=== PATIENT | male | born 1970 | race Caucasian/White ===

== ENCOUNTER 2020-08-12 10:44 | Emergency (ER) | payer OTHER, BC ==
[~2020-08-12] VITALS: Ht 182.9 cm; Wt 77.1 kg
[2020-08-12 11:41] LABS: BASOPHILS ABSOLUTE AUTO 0.03 K/mm3 (0.00-0.23); BASOPHILS PERCENT AUTO 1 % (0-2); EOSINOPHILS ABSOLUTE AUTO 0.19 K/mm3 (0.00-0.68); EOSINOPHILS PERCENT AUTO 4 % (0-6); Hematocrit 34.7 % (37.0-53.0); Hemoglobin 12.1 g/dL (13.5-17.5); IMMATURE GRAN ABSOLUTE AUTO 0.01 K/mm3 (0.00-0.10); IMMATURE GRAN PERCENT AUTO 0 % (0-1); LYMPHOCYTES ABSOLUTE AUTO 2.33 K/mm3 (0.84-5.20); LYMPHOCYTES PERCENT AUTO 51 % (21-46); MONOCYTES PERCENT AUTO 11 % (4-13); Mean Corpuscular HGB 31.6 pg (26.0-34.0); Mean Corpuscular HGB Conc 34.9 g/dL (31.5-36.5); Mean Corpuscular Volume 91 fL (80-100); Mean Platelet Volume 10.9 fL (9.1-12.4); NEUTROPHILS ABSOLUTE AUTO 1.53 K/mm3 (1.96-9.15); NEUTROPHILS PERCENT AUTO 33 % (41-73); Platelet Count 104 K/mm3 (150-400); RDW Coefficient Variation 14.7 % (11.7-14.2); RDW Standard Deviation 48.9 fL (35.1-46.3); Red Blood Cell Count 3.83 M/mm3 (4.30-5.90); White Blood Cell Count 4.59 K/mm3 (4.00-11.30)
[2020-08-12 11:57] LABS: Alanine Aminotransfer (ALT/SGP 150 U/L (12-78); Albumin, Blood 4.1 g/dL (3.4-5.0); Albumin/Globulin Ratio 1.1 (0.8-1.8); Alk Phos 71 U/L (50-136); Anion Gap 17 mmol/L (6-16); Aspartate Aminotrans (AST/SGOT 262 U/L (12-37); Bilirubin, Total 0.9 mg/dL (0.1-1.0); Blood Urea Nitrogen 15 mg/dL (8-24); Bun/Creatinine Ratio 13.6 (12.0-20.0); CO2, Blood 23 mmol/L (21-32); Calcium, Blood 8.9 mg/dL (8.5-10.1); Chloride, Blood 100 mmol/L (98-108); Ethanol (Alcohol), Blood, Med 256 mg/dL; Globulin, Blood 3.9 g/dL (2.2-4.0); Glomerular Filtration Rate >60 (60-); Glucose, Blood 99 mg/dL (70-99); Magnesium, Blood 1.9 mg/dL (1.6-2.4); Potassium, Blood 3.7 mmol/L (3.5-5.5); Sodium, Blood 140 mmol/L (136-145); Troponin I <0.015 ng/mL (0.000-0.040)
[2020-08-12] MEDS ORDERED: CHLO25 PO (12:29)
== END 2020-08-12 12:50 | disposition home or self-care (01) ==
LOC: ER 10:44
PROVIDERS: Emergency Medicine
DX: R55 Syncope and collapse (principal); I10 Essential (primary) hypertension; F10.20 Alcohol dependence, uncomplicated; K70.10 Alcoholic hepatitis without ascites
CPT/HCPCS: 70450; 71045; 80053; 82010; 83605; 83735; 84484; 85025; 93005; 93010; 96361; 96374; 99285-25; G0480; J2060; J7120

== ENCOUNTER 2020-08-16 10:33 | Emergency (ER) | payer OTHER, BC ==
[~2020-08-16] VITALS: Ht 180.3 cm; Wt 77.1 kg
[~2020-08-16 10:33] MED LIST: CHLO25 PO
[2020-08-16] MEDS ORDERED: LISINOPRIL-HCT1 EAC1 PO (11:09)
[2020-08-16] MEDS ORDERED: Chlordiazepoxid25 MG PO (11:10)
[2020-08-16 11:17] LABS: BASOPHILS ABSOLUTE AUTO 0.05 K/mm3 (0.00-0.23); BASOPHILS PERCENT AUTO 1 % (0-2); EOSINOPHILS ABSOLUTE AUTO 0.18 K/mm3 (0.00-0.68); EOSINOPHILS PERCENT AUTO 3 % (0-6); Hematocrit 37.6 % (37.0-53.0); Hemoglobin 12.6 g/dL (13.5-17.5); IMMATURE GRAN ABSOLUTE AUTO 0.04 K/mm3 (0.00-0.10); IMMATURE GRAN PERCENT AUTO 1 % (0-1); LYMPHOCYTES ABSOLUTE AUTO 1.33 K/mm3 (0.84-5.20); LYMPHOCYTES PERCENT AUTO 19 % (21-46); MONOCYTES ABSOLUTE AUTO 0.83 K/mm3 (0.16-1.47); MONOCYTES PERCENT AUTO 12 % (4-13); Mean Corpuscular HGB Conc 33.5 g/dL (31.5-36.5); Mean Corpuscular Volume 93 fL (80-100); Mean Platelet Volume 11.5 fL (9.1-12.4); NEUTROPHILS ABSOLUTE AUTO 4.73 K/mm3 (1.96-9.15); NEUTROPHILS PERCENT AUTO 66 % (41-73); Platelet Count 108 K/mm3 (150-400); RDW Coefficient Variation 14.5 % (11.7-14.2); RDW Standard Deviation 49.3 fL (35.1-46.3); Red Blood Cell Count 4.06 M/mm3 (4.30-5.90); White Blood Cell Count 7.16 K/mm3 (4.00-11.30)
[2020-08-16 11:31] LABS: Albumin, Blood 4.2 g/dL (3.4-5.0); Albumin/Globulin Ratio 0.9 (0.8-1.8); Bilirubin, Total 1.6 mg/dL (0.1-1.0); Bun/Creatinine Ratio 13.3 (12.0-20.0); Calcium, Blood 9.1 mg/dL (8.5-10.1); Creatinine, Blood 1.43 mg/dL (0.60-1.20); Globulin, Blood 4.5 g/dL (2.2-4.0); Potassium, Blood 3.1 mmol/L (3.5-5.5); Total Protein, Blood 8.7 g/dL (6.4-8.2)
[2020-08-16 12:31] LABS: Bilirubin, Urine Neg (Neg); Blood, Urine Neg (Neg); Glucose Qualitative, Urine Neg (Neg); Ketones, Urine 1+ (Neg); Leukocyte Esterase, Urine Neg (Neg); Nitrite, Urine Neg (Neg); Protein, Urine Neg (Neg); Specific Gravity, Urine 1.005 (1.003-1.022); Urobilinogen, Urine NORM (Normal); pH, Urine 6.5 (5.0-8.0)
[2020-08-16 12:35] LABS: Appearance, Urine Clear (Clear); Color, Urine Yellow (P-Yellow)
[2020-08-16] MEDS ORDERED: K-Dur10 MEQ PO (13:04)
== END 2020-08-16 13:19 | disposition home or self-care (01) ==
LOC: ER 10:33
PROVIDERS: Emergency Medicine
DX: I95.1 Orthostatic hypotension (principal); E87.6 Hypokalemia; N17.9 Acute kidney failure, unspecified; I10 Essential (primary) hypertension; K21.9 Gastro-esophageal reflux disease without esophagitis; Z79.899 Other long term (current) drug therapy
CPT/HCPCS: 36415; 80053; 81003; 85025; 93005; 93010; 96360; 99285-25; A9270; J7030

== ENCOUNTER 2021-03-26 15:53 | Emergency (ER) | payer OTHER, BC ==
[~2021-03-26] VITALS: Ht 182.9 cm; Wt 108.0 kg
[~2021-03-26 15:53] MED LIST changes: +Chlordiazepoxid25 MG PO; +K-Dur10 MEQ PO; +LISINOPRIL-HCT1 EAC1 PO
[2021-03-26] MEDS ORDERED: TRAM50 PO (16:37)
[2021-03-26 16:40] LABS: BASOPHILS ABSOLUTE AUTO 0.03 K/mm3 (0.00-0.23); BASOPHILS PERCENT AUTO 0 % (0-2); EOSINOPHILS PERCENT AUTO 0 % (0-6); Hemoglobin 13.4 g/dL (13.5-17.5); IMMATURE GRAN ABSOLUTE AUTO 0.04 K/mm3 (0.00-0.10); IMMATURE GRAN PERCENT AUTO 1 % (0-1); LYMPHOCYTES ABSOLUTE AUTO 0.77 K/mm3 (0.84-5.20); LYMPHOCYTES PERCENT AUTO 9 % (21-46); MONOCYTES ABSOLUTE AUTO 0.56 K/mm3 (0.16-1.47); MONOCYTES PERCENT AUTO 7 % (4-13); Mean Corpuscular HGB 32.1 pg (26.0-34.0); Mean Corpuscular HGB Conc 36.2 g/dL (31.5-36.5); Mean Corpuscular Volume 89 fL (80-100); Mean Platelet Volume 10.2 fL (9.1-12.4); NEUTROPHILS ABSOLUTE AUTO 7.21 K/mm3 (1.96-9.15); NEUTROPHILS PERCENT AUTO 84 % (41-73); Platelet Count 214 K/mm3 (150-400); RDW Coefficient Variation 12.9 % (11.7-14.2); RDW Standard Deviation 42.3 fL (35.1-46.3); Red Blood Cell Count 4.17 M/mm3 (4.30-5.90); White Blood Cell Count 8.61 K/mm3 (4.00-11.30)
[2021-03-26 16:52] LABS: Alanine Aminotransfer (ALT/SGP 27 U/L (12-78); Albumin, Blood 4.6 g/dL (3.4-5.0); Albumin/Globulin Ratio 1.2 (0.8-1.8); Alk Phos 64 U/L (50-136); Anion Gap 10 mmol/L (6-16); Aspartate Aminotrans (AST/SGOT 36 U/L (12-37); Bilirubin, Total 0.9 mg/dL (0.1-1.0); Blood Urea Nitrogen 18 mg/dL (8-24); Bun/Creatinine Ratio 15.3 (12.0-20.0); CO2, Blood 23 mmol/L (21-32); Calcium, Blood 10.3 mg/dL (8.5-10.1); Chloride, Blood 106 mmol/L (98-108); Creatinine, Blood 1.18 mg/dL (0.60-1.20); Globulin, Blood 3.8 g/dL (2.2-4.0); Glomerular Filtration Rate >60 (60-); Glucose, Blood 115 mg/dL (70-99); Potassium, Blood 4.1 mmol/L (3.5-5.5); Sodium, Blood 139 mmol/L (136-145); Total Protein, Blood 8.4 g/dL (6.4-8.2)
[2021-03-26] MEDS ORDERED: ONDA4ODT MM (17:57)
== END 2021-03-26 18:10 | disposition home or self-care (01) ==
LOC: ER 15:53
PROVIDERS: Physician Assistant
DX: E86.0 Dehydration (principal); Z79.899 Other long term (current) drug therapy
CPT/HCPCS: 80053; 85025; 93005; 93010; 96361; 96374; 99284-25; J2550; J7030

== ENCOUNTER 2023-03-15 20:58 | Inpatient (IN) | payer BC ==
[~2023-03-15] VITALS: Ht 182.9 cm; Wt 72.6 kg
[~2023-03-15 20:58] MED LIST changes: +ONDA4ODT MM; +TRAM50 PO
[2023-03-15 21:34] LABS: Hematocrit 37.9 % (37.0-53.0); Hemoglobin 13.6 g/dL (13.5-17.5); Mean Corpuscular HGB Conc 35.9 g/dL (31.5-36.5); Mean Corpuscular Volume 97 fL (80-100); Platelet Count 65 K/mm3 (150-400); RDW Coefficient Variation 14.4 % (11.7-14.2); RDW Standard Deviation 51.9 fL (35.1-46.3); Red Blood Cell Count 3.89 M/mm3 (4.30-5.90); White Blood Cell Count 7.89 K/mm3 (4.00-11.30)
[2023-03-15 21:40] LABS: Source, Urine Clean Catch
[2023-03-15 21:43] LABS: Blood, Urine Neg (Neg); Glucose Qualitative, Urine Neg (Neg); Ketones, Urine 2+ (Neg); Leukocyte Esterase, Urine 1+ (Neg); Nitrite, Urine Neg (Neg); Protein, Urine 2+ (Neg); Urobilinogen, Urine 3+ (Normal)
[2023-03-15 21:51] LABS: Alanine Aminotransfer (ALT/SGP 114 U/L (12-78); Albumin, Blood 3.8 g/dL (3.4-5.0); Albumin/Globulin Ratio 0.9 (0.8-1.8); Alk Phos 166 U/L (50-136); Anion Gap 12 mmol/L (6-16); Aspartate Aminotrans (AST/SGOT 257 U/L (12-37); Bilirubin, Total 6.5 mg/dL (0.1-1.0); Blood Urea Nitrogen 26 mg/dL (8-24); Bun/Creatinine Ratio 29.7 (12.0-20.0); CO2, Blood 24 mmol/L (21-32); Calcium, Blood 9.3 mg/dL (8.5-10.1); Chloride, Blood 94 mmol/L (98-108); Creatinine, Blood 0.88 mg/dL (0.60-1.20); Ethanol (Alcohol), Blood, Med <3 mg/dL; Globulin, Blood 4.2 g/dL (2.2-4.0); Glomerular Filtration Rate 102 (60-); Glucose, Blood 91 mg/dL (70-99); Potassium, Blood 3.2 mmol/L (3.5-5.5); Sodium, Blood 130 mmol/L (136-145)
[2023-03-15 21:52] LABS: Bilirubin, Urine 2+ (Neg); Color, Urine Amber (P-Yellow)
[2023-03-15 21:53] LABS: Appearance, Urine Clear (Clear); Bacteria Not Seen /hpf; Red Blood Cells, Urine Not Seen /hpf (0-2); Squamous Epithelial Cells Not Seen /hpf (Few)
[2023-03-15 21:55] LABS: U Amphetamine Screen Not Detected; U Barbituate Screen Not Detected; U Benzodiazapine Screen Not Detected; U Buprenorphine Screen Not Detected; U Cannabinoids Screen Not Detected; U Cocaine Screen Not Detected; U Methadone Screen Not Detected; U Methamphetamine Screen Not Detected; U Opiates Screen Not Detected; U Oxycodone Screen DETECTED; U Phencyclidine Screen Not Detected; U Propoxyphene Screen Not Detected
[2023-03-15 21:57] LABS: BASOPHILS PERCENT MAN 0 % (0-2); EOSINOPHILS PERCENT MAN 0 % (0-6); LYMPHOCYTES ABSOLUTE MAN 0.86 K/mm3 (0.84-5.20); LYMPHOCYTES PERCENT MAN 11 % (21-46); MONOCYTES ABSOLUTE MAN 0.47 K/mm3 (0.16-1.47); MONOCYTES PERCENT MAN 6 % (4-13); MYELOCYTE ABSOLUTE MAN 0.07 K/mm3 (0.00-0.00); MYELOCYTE PERCENT MAN 1 % (0-0); NEUTROPHILS ABSOLUTE MAN 6.46 K/mm3 (1.96-9.15); SEG NEUTROPHILS PERCENT MAN 82 % (41-73); TOTAL CELLS COUNTED 100
[2023-03-15] MEDS ORDERED: OXYC5 PO (22:15)
[2023-03-15] MEDS ORDERED: CHLO25 PO (22:44)
[2023-03-16] VITALS (21 sets, daily range): BP systolic 95–149; BP diastolic 79–116
[2023-03-16] MEDS ORDERED: ASPI81CH PO (00:48)
[2023-03-16 04:04] LABS: Albumin, Blood 3.3 g/dL (3.4-5.0); Albumin/Globulin Ratio 0.9 (0.8-1.8); Bilirubin, Total 5.1 mg/dL (0.1-1.0); Bun/Creatinine Ratio 26.1 (12.0-20.0); Calcium, Blood 8.6 mg/dL (8.5-10.1); Creatinine, Blood 0.77 mg/dL (0.60-1.20); Globulin, Blood 3.6 g/dL (2.2-4.0); Potassium, Blood 2.9 mmol/L (3.5-5.5); Total Protein, Blood 6.9 g/dL (6.4-8.2)
[2023-03-16 04:32] LABS: Magnesium, Blood 1.6 mg/dL (1.6-2.4)
--- NOTE | 2023-03-16 06:18 | NUR ---
PATIENT AOX1. MOST RECENT CIWA IS 18. LIBRIUM AND ATIVAN GIVEN OVERNIGHT. PRECEDEX INFUSING. NSR AND BP STABLE. 2L NC PLACED WHILE PATIENT SLEEPING. NPO. CONDOM CATHETER IN PLACE. TOOK PATIENT BELONGINGS HOME WITH HER.
--- NOTE | 2023-03-16 07:23 | NUR ---
Assumed care. Report received from damon POLANCO. Pt resting in bed ATT. Precedex infusing at 0.5 mcg/kg/hr, potassium 10 mEQ/hr, NS KVO rate. VS stable, no acute needs at time of report. Continue to monitor.
--- NOTE | 2023-03-16 18:06 | NUR ---
Shift summary. Pt rested in bed throughout shift. Precedex titrated slowly off this afternoon. Pt showing signs of improvement, able to recall date, oriented to person, place, event. PRN librium administered, see EMAR. See chart for further details. Will continue to monitor and report off to damon POLANCO.
[2023-03-17] VITALS (8 sets, daily range): BP systolic 101–140; BP diastolic 72–96
--- NOTE | 2023-03-17 01:05 | NUR ---
TRANSFER TO PCU20 PT ARRIVED TO PCU20 AT APPROXIMATELY 0105. PT SLIDE OVER FROM ICU BED TO PCU BED BY 4 CLINICAL STAFF MEMBERS. PT A&Ox4, COMMUNICATES NEEDS APPROPRIATELY, ORIENTED TO CALL LIGHT/UNIT. BP STABLE, SINUS 90's, DENIES CP/PRESSURE. SpO2> 92% RA, DENIES SOB. CIWA 10 AT ARRIVAL, MEDICATED PER EMAR. PT REPORTS SEEING ANS HEARING THINGS THAT HE KNOWS ARE NOT THERE, BED ALARM ON. CONDOM CATH IN PLACE, PATENT, DRAINING TO GRAVITY.
--- NOTE | 2023-03-17 03:10 | NUR ---
PATIENT'S , DOC, NOTIFIED OF PATIENT TRANSFER TO PCU
[2023-03-17 05:00] LABS: Hemoglobin 12.3 g/dL (13.5-17.5); Mean Corpuscular HGB 35.1 pg (26.0-34.0); Mean Corpuscular HGB Conc 35.1 g/dL (31.5-36.5); Mean Corpuscular Volume 100 fL (80-100); Mean Platelet Volume 11.5 fL (9.1-12.4); Platelet Count 81 K/mm3 (150-400); RDW Coefficient Variation 14.8 % (11.7-14.2); White Blood Cell Count 6.86 K/mm3 (4.00-11.30)
[2023-03-17 05:05] LABS: Albumin, Blood 3.1 g/dL (3.4-5.0); Albumin/Globulin Ratio 0.8 (0.8-1.8); Bilirubin, Total 5.6 mg/dL (0.1-1.0); Bun/Creatinine Ratio 26.8 (12.0-20.0); Calcium, Blood 8.5 mg/dL (8.5-10.1); Creatinine, Blood 0.6 mg/dL (0.60-1.20); Globulin, Blood 3.7 g/dL (2.2-4.0); Magnesium, Blood 1.8 mg/dL (1.6-2.4); Potassium, Blood 3.1 mmol/L (3.5-5.5); Total Protein, Blood 6.8 g/dL (6.4-8.2)
--- NOTE | 2023-03-17 05:59 | NUR ---
SHIFT SUMMARY SEE PREVIOUS NOTE. PT A&Ox4, CALLS AND COMMUNICATES NEEDS APPROPRIATELY. CIWA 6 AFTER MEDCIATIGN PER EMAR, PT STATED THAT VISUAL AND AUDITORY HALLUCINATIONS WERE GONE. BP STABLE, SINUS 80's, DENIES CP/PRESSURE. SpO2> 92% RA, DENIES SOB. 2 ASSIST TO BSC, PT VERY TREMULOUS AND UNSTEADY. PT WITH [address] LOOSE BM[address] CONDOM CATH IN PLACE, PATENT, DRAINING TO GRAVITY. NO OTHER EVENTS, WILL REPORT TO ONCOMING RN.
--- NOTE | 2023-03-17 13:51 | NUR ---
RN/ DAY SHIFT SUMMARY MORNING SHIFT REPORT RECIEVED WHILE GREETING THE PATIENT AT BEDSIDE. THE PATIENT SEEMED HAVE SLIGHT TREMORS. THE PATIENT WAS ASSESSED MEDICATIONS WERE PASSED. THE PATIENT WAS UP TO USE THE RESTROOM AND HIS HEART RATE WHEN UP TO 140'S. HE HAS CONTINUED WITH LITTLE TO NO OTHER SYMPTOMS OF WITHDRAWL AT THIS TIME WILL CONTINUE TO MONITOR. 25 MG OF LIBRIUM GIVEN DURING THE SECOND CIWA.
[2023-03-18 04:22] VITALS: BP 117/85
[2023-03-18 04:37] LABS: Hematocrit 35.7 % (37.0-53.0); Hemoglobin 12.7 g/dL (13.5-17.5); Mean Corpuscular HGB 35.9 pg (26.0-34.0); Mean Corpuscular HGB Conc 35.6 g/dL (31.5-36.5); Mean Corpuscular Volume 101 fL (80-100); Mean Platelet Volume 11.6 fL (9.1-12.4); Platelet Count 117 K/mm3 (150-400); RDW Coefficient Variation 14.9 % (11.7-14.2); RDW Standard Deviation 56.6 fL (35.1-46.3); Red Blood Cell Count 3.54 M/mm3 (4.30-5.90); White Blood Cell Count 6.91 K/mm3 (4.00-11.30)
[2023-03-18 05:06] LABS: Albumin, Blood 3.1 g/dL (3.4-5.0); Albumin/Globulin Ratio 0.8 (0.8-1.8); Bilirubin, Total 5.3 mg/dL (0.1-1.0); Bun/Creatinine Ratio 14.4 (12.0-20.0); Calcium, Blood 8.9 mg/dL (8.5-10.1); Creatinine, Blood 0.7 mg/dL (0.60-1.20); Globulin, Blood 3.8 g/dL (2.2-4.0); Potassium, Blood 3.4 mmol/L (3.5-5.5); Total Protein, Blood 6.9 g/dL (6.4-8.2)
--- NOTE | 2023-03-18 05:52 | NUR ---
SHIFT SUMMARY PT A&Ox4, CALLS AND COMMUNICATES NEEDS APPROPRIATELY. BP STABLE, SINUS 80's, DENIES CP/PRESSURE. SpO2> 92% RA, DENIES SOB. 1-2 ASSIST WITH AMBULATING TO BATHROOM. NO OTHER EVENTS, WILL REPORT TO ONCOMING RN.
[2023-03-18 07:36] VITALS: BP 116/88
--- NOTE | 2023-03-18 12:10 | NUR ---
RN/DAY SHIFT SUMMARY MORNING REPORT RECIEVED AT BEDSIDE DURING PATIENT GREETING. MORNING ASSESSMENT AND MEDICATION PASS COMPLETED WITH NO NEW DEVELOPING CHANGES. THE PATIENT SEEMS TO BE IN GOOD SPIRITS AND IS RECEPTIVE TO QUITTING DRINKING. THE PATIENT HAS HAD SOME DIFFICULTY WITH WAITING FOR A STAND BY ASSIST AND REMOVED HIS TELEMETRY BOX WITHOUT NOTIFING THE NURSE. AWAITING ROOM FOR DOWNGRADE TO MEDICAL WILL CONTINUE TO MONITOR.
--- NOTE | 2023-03-18 13:26 | NUR ---
Pt given some water and helped to the bathroom to use the toilet. He walks with the geriwalker and staff supervision, without any noted difficulty.
--- NOTE | 2023-03-18 15:53 | NUR ---
THIS NURSE RECIEVED REPORT FROM PCU NURSE AND PATIENT WAS WHEELCHAIRED OVER WITH PERSONAL ITEMS. HE IS LAYING IN BED WATCHING TV WITH CALL LIGHT IN REACH.
[2023-03-18 16:21] VITALS: BP 119/93; BP 127/94
[2023-03-18 19:55] VITALS: BP 117/89
--- NOTE | 2023-03-19 04:12 | NUR ---
SUMMARY PATIENT IS AOX4, NO ACUTE EVENTS THIS SHIFT. REPORTS BASELINE N/T ON BOTTOM OF FEET. PATIENT WALKS HALLWAY THIS SHIFT WITH GRADUATE NURSE. DENIES PAIN, N/V. ABLE TO MAKE NEEDS KNOWN.VSS. CALL LIGHT IS IN REACH. WILL REPORT TO DAY RN
[2023-03-19 04:46] VITALS: BP 117/88
[2023-03-19 05:13] LABS: Hemoglobin 12.1 g/dL (13.5-17.5); Mean Corpuscular HGB Conc 34.6 g/dL (31.5-36.5); Mean Corpuscular Volume 101 fL (80-100); Mean Platelet Volume 11.4 fL (9.1-12.4); Platelet Count 159 K/mm3 (150-400); RDW Coefficient Variation 14.7 % (11.7-14.2); RDW Standard Deviation 55.5 fL (35.1-46.3); Red Blood Cell Count 3.46 M/mm3 (4.30-5.90); White Blood Cell Count 8.68 K/mm3 (4.00-11.30)
[2023-03-19 05:26] LABS: International Normalized Ratio 1.07; Prothrombin Time Results 11.2 Sec (9.7-11.5)
[2023-03-19 05:38] LABS: Albumin/Globulin Ratio 0.8 (0.8-1.8); Bilirubin, Total 4.2 mg/dL (0.1-1.0); Bun/Creatinine Ratio 12.3 (12.0-20.0); Calcium, Blood 8.8 mg/dL (8.5-10.1); Creatinine, Blood 0.57 mg/dL (0.60-1.20); Globulin, Blood 3.9 g/dL (2.2-4.0); Magnesium, Blood 1.8 mg/dL (1.6-2.4); Potassium, Blood 3.3 mmol/L (3.5-5.5); Total Protein, Blood 6.9 g/dL (6.4-8.2)
[2023-03-19 07:23] VITALS: BP 113/85
[2023-03-19] MEDS ORDERED: MULVITA PO (13:58)
--- NOTE | 2023-03-19 15:00 | NUR ---
DISCHARGE SUMMARY S/P ACUTE ETOH WITHDRAWAL, A/OX4, VSS, TOLERATING PO, INDEPENDENT IN ROOM AND HALLS, PAIN MANAGED. DISCUSSED DISCHARGE INFORAMTION WITH THE PATIENT AND HIS INCLUDING HOME CARE, MEDICATIONS, AND FOLLOW UP APPOINTMENTS. PT ENCOURAGED TO FOLLOW UP WITH HIS PCP AND TO HAVE THEM PERFORM A REPEAT LIVER ENZYME LAB TO ENSURE IT IS STILL TRENDING DOWN, AN APPOINTMENT FOR THIS HAS ALREADY BEEN MADE PER PT STATEMENT. PT LEFT WITH HIS TO GO HOME.
== END 2023-03-19 14:50 | disposition home or self-care (01) | DRG 896 ==
LOC: ER 20:58 → ICUW 23:26 → PCU 23:26 → ICUW 23:50 → PCU 03-17 01:02 → SURS 03-18 15:42
PROVIDERS: Internal Medicine; Student in an Organized Health Care Education/Training Program; ADMIT Internal Medicine
DX: F10.239 Alcohol dependence with withdrawal, unspecified (principal); K85.20 Alcohol induced acute pancreatitis without necrosis or infection; E87.1 Hypo-osmolality and hyponatremia; I10 Essential (primary) hypertension; K21.9 Gastro-esophageal reflux disease without esophagitis; K76.0 Fatty (change of) liver, not elsewhere classified; K70.10 Alcoholic hepatitis without ascites; G62.9 Polyneuropathy, unspecified; E87.6 Hypokalemia; D69.6 Thrombocytopenia, unspecified; M54.50 Low back pain, unspecified; R94.5 Abnormal results of liver function studies; R16.0 Hepatomegaly, not elsewhere classified; K76.89 Other specified diseases of liver; Z79.811 Long term (current) use of aromatase inhibitors; Z79.899 Other long term (current) drug therapy; Z98.52 Vasectomy status; Z98.890 Other specified postprocedural states; Y90.0 Blood alcohol level of less than 20 mg/100 ml; Z79.891 Long term (current) use of opiate analgesic; Z88.5 Allergy status to narcotic agent
CPT/HCPCS: 36415; 76705; 80053; 81001; 83690; 83735; 85025; 85027; 85610; 93005; 93010; 96361; 96374; 96375; 97112; 97116; 97161; 99285-25; A9270; C9113; G0480; J1200; J2060; J3411; J3480; J7030; J7050

== ENCOUNTER 2023-12-01 21:06 | Emergency (ER) | payer BC ==
[~2023-12-01] VITALS: Ht 182.9 cm; Wt 73.0 kg
[~2023-12-01 21:06] MED LIST changes: +ASPI81CH PO; +MULVITA PO; +OXYC5 PO
[2023-12-01 22:30] VITALS: BP 140/105
[2023-12-01] MEDS ORDERED: CYCL10 PO (23:11)
== END 2023-12-01 23:26 | disposition home or self-care (01) ==
LOC: ER 21:06
DX: S79.912A Unspecified injury of left hip, initial encounter (principal); I10 Essential (primary) hypertension; K21.9 Gastro-esophageal reflux disease without esophagitis; X50.1XXA Overexertion from prolonged static or awkward postures, initial encounter; Y93.89 Activity, other specified; Y99.0 Civilian activity done for income or pay
CPT/HCPCS: 73502; 99283-25

== ENCOUNTER 2024-06-14 12:29 | Inpatient (IN) | payer BC ==
[~2024-06-14] VITALS: Ht 182.9 cm; Wt 78.0 kg
[~2024-06-14 12:29] MED LIST changes: +CYCL10 PO
[2024-06-14 13:39] LABS: BASOPHILS ABSOLUTE AUTO 0.06 K/mm3 (0.00-0.23); BASOPHILS PERCENT AUTO 0 % (0-2); EOSINOPHILS ABSOLUTE AUTO 0.01 K/mm3 (0.00-0.68); EOSINOPHILS PERCENT AUTO 0 % (0-6); Hematocrit 34.9 % (37.0-53.0); Hemoglobin 12.9 g/dL (13.5-17.5); IMMATURE GRAN ABSOLUTE AUTO 0.14 K/mm3 (0.00-0.10); IMMATURE GRAN PERCENT AUTO 1 % (0-1); LYMPHOCYTES ABSOLUTE AUTO 0.87 K/mm3 (0.84-5.20); LYMPHOCYTES PERCENT AUTO 5 % (21-46); MONOCYTES ABSOLUTE AUTO 1.66 K/mm3 (0.16-1.47); MONOCYTES PERCENT AUTO 9 % (4-13); Mean Corpuscular HGB 34.3 pg (26.0-34.0); Mean Corpuscular Volume 93 fL (80-100); Mean Platelet Volume 11.9 fL (9.1-12.4); NEUTROPHILS ABSOLUTE AUTO 14.98 K/mm3 (1.96-9.15); NEUTROPHILS PERCENT AUTO 85 % (41-73); Platelet Count 134 K/mm3 (150-400); RDW Coefficient Variation 18.3 % (11.7-14.2); RDW Standard Deviation 61.9 fL (35.1-46.3); Red Blood Cell Count 3.76 M/mm3 (4.30-5.90); White Blood Cell Count 17.72 K/mm3 (4.00-11.30)
[2024-06-14 13:52] LABS: International Normalized Ratio 1.23
[2024-06-14 13:58] LABS: Albumin, Blood 2.6 g/dL (3.4-5.0); Albumin/Globulin Ratio 0.7 (0.8-1.8); Bilirubin, Total 21.6 mg/dL (0.1-1.0); Bun/Creatinine Ratio 24.5 (12.0-20.0); Calcium, Blood 8.3 mg/dL (8.5-10.1); Creatinine, Blood 0.61 mg/dL (0.60-1.20); Globulin, Blood 3.9 g/dL (2.2-4.0); Potassium, Blood 3.2 mmol/L (3.5-5.5); Total Protein, Blood 6.5 g/dL (6.4-8.2)
[2024-06-14 14:00] LABS: Source, Urine Clean Catch
[2024-06-14 14:06] LABS: Appearance, Urine Hazy (Clear); Blood, Urine 3+ (Neg); Color, Urine Amber (P-Yellow); Glucose Qualitative, Urine Neg (Neg); Ketones, Urine 1+ (Neg); Leukocyte Esterase, Urine 1+ (Neg); Nitrite, Urine Pos (Neg); Protein, Urine 2+ (Neg); Specific Gravity, Urine 1.015 (1.003-1.022); Urobilinogen, Urine 4+ (Normal)
[2024-06-14 14:20] LABS: Bilirubin, Urine 3+ (Neg)
[2024-06-14 14:22] LABS: Bacteria Many /hpf; Granular Casts 0-2 /lpf (0); Mucus Mod (0-Heavy); Squamous Epithelial Cells Few /hpf (Few); Transitional Epithelial Cells Rare /hpf (0-Rare)
[2024-06-14] MEDS ORDERED: CefTRIAXone Sodium 1,000 MG in NS 100 ML IV ONE (14:45)
[2024-06-14] MEDS ORDERED: Thiamine HCl 100 MG Tab PO ONE (14:45)
[2024-06-14] MEDS ORDERED: ChlordiazePOXIDE 25 MG Cap PO PRN (15:25)
[2024-06-14] MEDS ORDERED: LORazepam 2 MG/ML 1ML Injection IV PRN (15:25)
[2024-06-14] MEDS ORDERED: Ondansetron HCl 2 MG / ML 2ML Vial IV PRN (15:25)
[2024-06-14 15:41] LABS: Automated BF WBC Count 0.095 K/mm3 (0-999)
[2024-06-14] MEDS ORDERED: Phytonadione 5 MG Tab PO ONE (15:55)
[2024-06-14 15:58] LABS: Albumin, Body Fluid 1.1 g/dL; Lactate Dehydrogenase, Body Fl 80 U/L; Protein, Body Fluid 2.2 g/dL
[2024-06-14 15:59] LABS: Body Fluid WBC Count 95 /mm3 (0-999)
[2024-06-14] MEDS ORDERED: Potassium Chloride 20 MEQ TabCR PO ONE (16:00)
[2024-06-14 16:12] LABS: RBC Count, Body Fluid 986 /mm3 (0-0)
[2024-06-14 16:19] LABS: Appearance, Body Fluid Clear (Clear)
[2024-06-14] MEDS ORDERED: Folic Acid 1 MG in NS 50 ML IV SCH (16:30)
[2024-06-14] MEDS ORDERED: Thiamine HCl 100 MG in NS 50 ML IV SCH (16:30)
[2024-06-14] MEDS ORDERED: Pantoprazole Sodium 40 MG Injection IV SCH (16:30)
[2024-06-14 16:43] LABS: Influenza A, PCR NEGATIVE (NEGATIVE); Influenza B, PCR NEGATIVE (NEGATIVE); Resp Syncytial Virus, PCR NEGATIVE (NEGATIVE); SARS-Cov-2 (COVID-19) PCR, MMC NEGATIVE (NEGATIVE)
[2024-06-14 16:59] LABS: Total Cell Count, Body Fluid 100
[2024-06-14] MEDS ORDERED: Albumin (Human) 25gm/100ml 100 ML IV SCH (17:00)
[2024-06-14] MEDS ORDERED: IBUP200 PO (17:43)
[2024-06-14 18:02] VITALS: BP 140/99
--- NOTE | 2024-06-14 18:24 | NUR ---
Pt arrived to PCU, alert, oriented, pleasantly conversant, cooperative. Able to transfer from stretcher to bed without difficulty. 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 CIWA score 4. STates last drink was 0600, and last time he had withdrawl from alcohol the symptoms started 12 hours after the last drink. Given 25 librium. Sinus tachycardia 100 bpm by telemetry noted, systolic b/p 140. Afebrile. He was able to walk into the bathroom 1 hour after arrival to use the toilet, nurse stand by assist for patient safety and fall prevention. is at the bedside, interaction with staff an patient appear appropriate.
[2024-06-14 19:31] VITALS: BP 120/84
[2024-06-14] MEDS ORDERED: Lactobacil 2-S.Thermo-Bifido 1 1 Cap PO SCH (21:00)
[2024-06-14 23:51] VITALS: BP 124/83
[2024-06-15 04:51] VITALS: BP 117/81
[2024-06-15 04:52] LABS: Hematocrit 29.5 % (37.0-53.0); Hemoglobin 10.9 g/dL (13.5-17.5); Mean Corpuscular HGB 33.9 pg (26.0-34.0); Mean Corpuscular HGB Conc 36.9 g/dL (31.5-36.5); Mean Corpuscular Volume 92 fL (80-100); Platelet Count 106 K/mm3 (150-400); RDW Coefficient Variation 17.4 % (11.7-14.2); RDW Standard Deviation 58.1 fL (35.1-46.3); Red Blood Cell Count 3.22 M/mm3 (4.30-5.90); White Blood Cell Count 13.34 K/mm3 (4.00-11.30)
--- NOTE | 2024-06-15 05:06 | NUR ---
SHIFT SUMMARY PT A&O X4, ABLE TO MAKE NEEDS KNOWN ALTHOUGH IS CONFUSED AT TIMES. BED ALARM ON FOR SAFETY. VSS, AFEBRILE, SPO2 >95% RA. PT DENIES CP OR SOB. CIWA SCORES 2-8, MEDICATED PER EMAR. PT CONTINUES TO BE DROWSY DUE TO MEDICATION. PT IS 2 PERSON ASSIST WITH TRANSFERS DUE TO TREMORS AND WEAKNESS. PT UP TO USE BSC THIS SHIFT. PT IS RESTING QUIETLY IN BED, CALL LIGHT WITHIN REACH, BREATHING EVEN AND UNLABORED.
[2024-06-15 05:29] LABS: Albumin, Blood 2.9 g/dL (3.4-5.0); Bilirubin, Total 22.3 mg/dL (0.1-1.0); Calcium, Blood 7.9 mg/dL (8.5-10.1); Creatinine, Blood 0.55 mg/dL (0.60-1.20); Potassium, Blood 3.5 mmol/L (3.5-5.5); Total Protein, Blood 5.9 g/dL (6.4-8.2)
--- NOTE | 2024-06-15 08:00 | NUR ---
ASSUMING CARE ASSUMING CARE AT 0700, BEDSIDE SHIIFT REPORT GIVING FROM HOOP BENDER TANK RN. PRESENT AT BEDSIDE DURING REPORT. PT WAS RESTING WITH EYES CLOSED. CALL LIGHT IN REACH OF PT.
[2024-06-15 08:16] VITALS: BP 113/87
[2024-06-15] MEDS ORDERED: Spironolactone 25 MG Tab PO SCH (09:00)
[2024-06-15] MEDS ORDERED: CefTRIAXone Sodium 1,000 MG in NS 100 ML IV SCH (09:00)
[2024-06-15] MEDS ORDERED: NS 100 ML IV ONE (09:51)
[2024-06-15] MEDS ORDERED: CefTRIAXone 1000 MG Vial ONE (09:51)
[2024-06-15 11:15] VITALS: BP 103/79
--- NOTE | 2024-06-15 12:47 | NUR ---
Upon receiving a referral for spiritual care, I visited the patient. The patient is lying in bed and alert but engages with one word answers and states that he is doing good. His spouse, Constance, who is very pleasant, statesthat she is concerned that the patient will stay on the path to sobriety that he committed to when he was admitted to the hospital. Constance says that she has good support from her two grown children (one of which lives locally) and friends. I encouraged self-care and provided therapeutic listening and a calming presence. I will continue to remain available to patient and family.
[2024-06-15 15:38] VITALS: BP 116/77
--- NOTE | 2024-06-15 17:51 | NUR ---
SHIFT SUMMARY; ASSUMED CARE AT 0700. A/A/OX2-3. CIWA'S DURING SHIFT 8-12. LAST DRINK 0600 06/14/24. NORMALLY DAILY ALCOHOL CONSUMPTION 1 BOTTLE OF WINE AND 4 SHOTS OF WHISKEY. MOVES SELF FREQUENTLY ON BED, UP TO BEDSIDE COMMODE WITH 2 PERSON ASSIST AND GAIT BELT. WEAK AND HAS DIFFICULTY FOLLOWING INSTRUCTIONS. ABD ROUND BUT SOFT, JAUNDACE T/O. MEDICATED PRN PER EMAR FOR ETOH WITHDRAWL. SPOUSE AT BEDSIDE DURING SHIFT. PLAN OF CARE UPDATED WITH SPOUSE BY DR. MOSLEY. VSS, SINUS 90'S, SATS >95%, WILL CONTINUE TO MONITOR AND TREAT UNTIL CHANGE OF SHIFT.
[2024-06-15 19:53] VITALS: BP 113/76
[2024-06-15 23:15] VITALS: BP 106/76
[2024-06-16 03:25] VITALS: BP 110/84
--- NOTE | 2024-06-16 05:33 | NUR ---
SHIFT SUMMARY THIS RN ASSUMED CARE OF PATIENT AT 1900. PT A&O X2-4 DURING THIS SHIFT. CIWA'S 4-10. VSS. PT CALM AND COOPERATIVE WITH CARE. DENIES SOB AT REST. USING URINAL WITH ASSISTANCE IN BED. PT NEEDING ASSISTANCE WITH DRINKING D/T TREMORS. CALLING APPROPIATELY. BED ALARM ON FOR SAFETY. BED IN LOWEST POSITION AND CALL LIGHT WITHIN REACH. THIS RN WILL REPORT TO ONCOMING DAYSHIFT RN.
[2024-06-16 07:16] VITALS: BP 102/78
[2024-06-16 09:07] LABS: International Normalized Ratio 1.48; Prothrombin Time Results 15.4 Sec (9.7-11.5)
[2024-06-16 09:24] LABS: Magnesium, Blood 1.9 mg/dL (1.6-2.4)
[2024-06-16] MEDS ORDERED: CefTRIAXone 1000 MG Vial ONE (09:29)
[2024-06-16] MEDS ORDERED: NS 100 ML IV ONE (09:29)
[2024-06-16 10:13] LABS: Albumin, Blood 2.4 g/dL (3.4-5.0); Albumin/Globulin Ratio 0.8 (0.8-1.8); Bun/Creatinine Ratio 19.3 (12.0-20.0); Calcium, Blood 7.6 mg/dL (8.5-10.1); Creatinine, Blood 0.62 mg/dL (0.60-1.20); Globulin, Blood 3.1 g/dL (2.2-4.0); Potassium, Blood 3.3 mmol/L (3.5-5.5); Total Protein, Blood 5.5 g/dL (6.4-8.2)
[2024-06-16 11:17] VITALS: BP 124/96
[2024-06-16 11:29] LABS: HEPATITIS A ANTIBODY, IGM Negative (Negative); HEPATITIS B CORE ANTIBODY, IGM Negative (Negative); HEPATITIS B SURFACE ANTIGEN Negative (Negative); HEPATITIS C AB CIA INTERP Negative (Negative); HEPATITIS C ANTIBODY CIA INDEX <0.02 IV
[2024-06-16] MEDS ORDERED: Potassium Chloride 20 MEQ TabCR PO ONE (13:05)
[2024-06-16] MEDS ORDERED: Spironolactone 25 MG Tab PO ONE ×2 (13:20)
[2024-06-16] MEDS ORDERED: Phytonadione 5 MG Tab PO ONE (14:00)
[2024-06-16 16:12] VITALS: BP 106/75
[2024-06-16] MEDS ORDERED: PredniSONE 20 MG Tab PO SCH (17:00)
--- NOTE | 2024-06-16 17:56 | NUR ---
SHIFT SUMMARY; ASSUMED CARE AT 0700. A/A/OX3 DURING SHIFT. CONTINUED CIWA PROTOCOL. CIWA'S 8-12, MEDICATED PER EMAR. VSS, REMAINS WEAK. 2 PERSON ASSIST TO COMMODE, UNABLE TO HAVE BM. PURWICK IN PLACE DRAINING TEA COLORED URINE. EATING AND DRINKING WITH ASSISTANCE BUT MINIMAL AMOUNTS. ABD FIRMER THAT PREVIOUS SHIFT, NON TENDER. JAUNDICE T/O. COOPERATIVE WITH CARE, WILL CONTINUE TO MONITOR AND TREAT UNTIL CHANGE OF SHIFT.
[2024-06-16 19:45] VITALS: BP 97/75
[2024-06-16 23:33] VITALS: BP 97/71
[2024-06-17] VITALS (16 sets, daily range): BP systolic 93–122; BP diastolic 69–88
[2024-06-17 04:24] LABS: Hematocrit 33.6 % (37.0-53.0); Hemoglobin 12.2 g/dL (13.5-17.5); Mean Corpuscular HGB 34.1 pg (26.0-34.0); Mean Corpuscular HGB Conc 36.3 g/dL (31.5-36.5); Mean Corpuscular Volume 94 fL (80-100); Mean Platelet Volume 12.8 fL (9.1-12.4); Platelet Count 130 K/mm3 (150-400); RDW Coefficient Variation 18.6 % (11.7-14.2); RDW Standard Deviation 63.7 fL (35.1-46.3); Red Blood Cell Count 3.58 M/mm3 (4.30-5.90)
--- NOTE | 2024-06-17 04:29 | NUR ---
SHIFT SUMMARY THIS RN ASSUMED CARE OF PATIENT AT 1900. PT A&O X3-4 DURING THIS SHIFT. CIWA'S 0-4. SBP 90'S. MAP >65. OTHERWISE VSS. ON RA. DENIES SOB AT REST. SHALLOW RESPIRATIONS NOTED. PT CALM AND COOPERATIVE WITH CARE. PT REPORTED FEELING FATIGUED DURING THIS NOC SHIFT. PT APPEARED TO HAVE SLEPT T/O THIS SHIFT, RESPIRATIONS EVEN AND UNLABORED. PT REPOSITIONING SELF IN BED. CONDOM CATH IN PLACE. PT WEAK WITH TRANSFERS. BED IN LOWEST POSITION AND CALL LIGHT WITHIN REACH. THIS RN WILL REPORT TO ONCOMING DAYSHIFT RN.
[2024-06-17 05:03] LABS: Albumin, Blood 2.1 g/dL (3.4-5.0); Albumin/Globulin Ratio 0.7 (0.8-1.8); Bilirubin, Total 32.8 mg/dL (0.1-1.0); Calcium, Blood 7.4 mg/dL (8.5-10.1); Creatinine, Blood 0.58 mg/dL (0.60-1.20); Globulin, Blood 3.1 g/dL (2.2-4.0); Total Protein, Blood 5.2 g/dL (6.4-8.2)
[2024-06-17] MEDS ORDERED: Albumin (Human) 25gm/100ml 100 ML IV SCH (08:30)
[2024-06-17] MEDS ORDERED: Spironolactone 50 MG Tab PO SCH (09:00)
[2024-06-17 09:18] LABS: International Normalized Ratio 1.67; Prothrombin Time Results 17.2 Sec (9.7-11.5)
[2024-06-17] MEDS ORDERED: Pantoprazole Sodium 20 MG Tab PO SCH (16:30)
--- NOTE | 2024-06-17 16:38 | NUR ---
ASSUMPTION OF CARE/TRANSFER NOTE ASSUMED CARE OF PT AT 0700 THIS AM. NO ACUTE CHANGES. CIWA SCORE 2 T/O THE DAY, PT DROWSY AND APPEARS TO BE SLEEPING ON/OFF WITH AT BEDSIDE. NO NEEDS, NO COMPLAINTS. SEE DOCUMENTED VS AND ASSESSMENT. PT IS ABLE TO USE CALL LIGHT FOR NEEDS. PT TRANSFERED TO ICU 05 FOR STAFFING REASONS. ALL BELONGINGS SENT WITH PT, W PT FOR TRANSFER.
--- NOTE | 2024-06-17 18:57 | NUR ---
Summary. Pt arrived to ICU, weak and jaundiced but alert and oriented x2. Pt very weak, able to stand with two person assistance, gait belt and walker. VS stable this evening, no acute events. See chart for further details.
[2024-06-18] VITALS (20 sets, daily range): BP systolic 97–114; BP diastolic 65–82
[2024-06-18 03:16] LABS: BASOPHILS ABSOLUTE AUTO 0.03 K/mm3 (0.00-0.23); BASOPHILS PERCENT AUTO 0 % (0-2); EOSINOPHILS ABSOLUTE AUTO 0.09 K/mm3 (0.00-0.68); EOSINOPHILS PERCENT AUTO 1 % (0-6); Hematocrit 30.5 % (37.0-53.0); Hemoglobin 11.4 g/dL (13.5-17.5); IMMATURE GRAN ABSOLUTE AUTO 0.15 K/mm3 (0.00-0.10); IMMATURE GRAN PERCENT AUTO 1 % (0-1); LYMPHOCYTES ABSOLUTE AUTO 1.02 K/mm3 (0.84-5.20); LYMPHOCYTES PERCENT AUTO 6 % (21-46); MONOCYTES ABSOLUTE AUTO 1.49 K/mm3 (0.16-1.47); MONOCYTES PERCENT AUTO 9 % (4-13); Mean Corpuscular HGB 34.8 pg (26.0-34.0); Mean Corpuscular HGB Conc 37.4 g/dL (31.5-36.5); Mean Corpuscular Volume 93 fL (80-100); Mean Platelet Volume 11.5 fL (9.1-12.4); NEUTROPHILS ABSOLUTE AUTO 14.31 K/mm3 (1.96-9.15); NEUTROPHILS PERCENT AUTO 84 % (41-73); Platelet Count 164 K/mm3 (150-400); RDW Coefficient Variation 18.7 % (11.7-14.2); RDW Standard Deviation 63.2 fL (35.1-46.3); Red Blood Cell Count 3.28 M/mm3 (4.30-5.90); White Blood Cell Count 17.09 K/mm3 (4.00-11.30)
[2024-06-18 03:31] LABS: International Normalized Ratio 1.5; Prothrombin Time Results 15.6 Sec (9.7-11.5)
[2024-06-18 03:43] LABS: Magnesium, Blood 2.2 mg/dL (1.6-2.4)
[2024-06-18 03:46] LABS: Albumin, Blood 2.6 g/dL (3.4-5.0); Bun/Creatinine Ratio 27.3 (12.0-20.0); Calcium, Blood 7.7 mg/dL (8.5-10.1); Creatinine, Blood 0.55 mg/dL (0.60-1.20); Globulin, Blood 2.7 g/dL (2.2-4.0); Potassium, Blood 3.8 mmol/L (3.5-5.5); Total Protein, Blood 5.3 g/dL (6.4-8.2)
[2024-06-18 03:47] LABS: Bilirubin, Total 27.6 mg/dL (0.1-1.0)
--- NOTE | 2024-06-18 06:31 | NUR ---
SHIFT SUMMARY: NO ACUTE CHANGES OVERNIGHT; VSS THROUGHOUT THE SHIFT. PT A&O X 3, COOPERATIVE WITH CARE, WEAK BUT STATES THAT HE FEELS STRENGTH IS IMPROVING SLOWLY. PT REQUIRES 1-2 PERSON ASSIST TO BEDSIDE COMMODE. INDEPENDENT WITH REPOSITIONING IN BED. LUNGS CLEAR, DIM BASES, AND STATES SOB/DYSPNEA WHEN LAYING FLAT. SR ON MONITOR WITH HR 80-90'S, SBP 110-130'S, DENIES CHEST PAIN/PRESSURE. ABD DISTENDED, NON-TENDER, HYPERACTIVE BOWEL TONES NOTED IN ALL QUADRANTS. PT HAS ATTENDS IN PLACE FOR INTERMITTEN INCONTINENCE; ABLE TO CALL FOR BEDSIDE COMMODE BUT HAS ALREADY GONE IN BED ONCE EVERYTHING GETS SET UP. PT DENIES ALL PAIN C/O. TOLERATING PO INTAKE. BED LOWERED, CALL LIGHT IN REACH.
[2024-06-18] MEDS ORDERED: NS 250 ML IV PRN (07:45)
[2024-06-18] MEDS ORDERED: Phytonadione 5 MG Tab PO ONE (07:50)
[2024-06-18] MEDS ORDERED: CefTRIAXone 1000 MG Vial ONE (08:23)
[2024-06-18] MEDS ORDERED: NS 100 ML IV ONE (08:23)
[2024-06-18] MEDS ORDERED: Thiamine HCl 100 MG Tab PO SCH (09:00)
[2024-06-18] MEDS ORDERED: Folic Acid 1 MG TAB PO SCH (09:00)
[2024-06-18] MEDS ORDERED: CefTRIAXone Sodium 1,000 MG in NS 100 ML IV SCH (09:00)
[2024-06-18 13:38] LABS: HEPATITIS A ANTIBODY, IGM Negative (Negative); HEPATITIS B CORE ANTIBODY, IGM Negative (Negative); HEPATITIS B SURFACE ANTIGEN Negative (Negative); HEPATITIS C AB CIA INTERP Negative (Negative); HEPATITIS C ANTIBODY CIA INDEX <0.02 IV
--- NOTE | 2024-06-18 17:59 | NUR ---
PT IS AWAKE IN BED. VSS. INTERMITTENT CONFUSION T/O SHIFT. CIWA ASSESSMENT COMPLETED THIS SHIFT. VOIDING W/ CONDOM CATH IN PLACE. SAT UP ON THE EDGE OF BED TODAY AND TOLERATED WELL. PAIN HAS BEEN MINIMAL, REPORTED TO BE IN LLQ. IMPROVED W/ REPOSITIONING. DECREASED APPETITE, NUTRITION EDUCATION PROVIDED. NO ACUTE EVENTS THIS SHIFT.
--- NOTE | 2024-06-18 18:27 | NUR ---
I have observed and read all nursing interventions and documentation by Radha POLANCO and agree with them.
[2024-06-18] MEDS ORDERED: Calcium Carbonate 500 MG Tab Chew PO PRN (19:35)
--- NOTE | 2024-06-18 19:54 | NUR ---
Assumed care of at 1900. Pt resting on bed, appears calm and is resting w/ eyes closed. Rouses when spoken to. Pt answering questions w/ one word answers- oriented x3, pt is not sure on what date it is. Pt following commands. Pt is on room air maintaining O2 sats> 93%. Appears jaundiced all over. NSR on monitor, rate of 91. BP stable w/ systolic in 110s. PT assisted onto bedpan, but does not have bowel movement at this time. Pt has 2 unmeasured voids, new attends and linens applied. Bed in lowest, locked position. Call light w/ in reach.
[2024-06-19] VITALS (11 sets, daily range): BP systolic 89–107; BP diastolic 61–84
[2024-06-19 03:42] LABS: Hematocrit 31.6 % (37.0-53.0); Hemoglobin 11.4 g/dL (13.5-17.5); Mean Corpuscular HGB 33.7 pg (26.0-34.0); Mean Corpuscular HGB Conc 36.1 g/dL (31.5-36.5); Mean Corpuscular Volume 94 fL (80-100); Mean Platelet Volume 11.9 fL (9.1-12.4); Platelet Count 183 K/mm3 (150-400); RDW Coefficient Variation 19.2 % (11.7-14.2); RDW Standard Deviation 65.3 fL (35.1-46.3); Red Blood Cell Count 3.38 M/mm3 (4.30-5.90)
[2024-06-19 03:43] LABS: International Normalized Ratio 1.5; Prothrombin Time Results 15.6 Sec (9.7-11.5)
[2024-06-19 03:50] LABS: Magnesium, Blood 2.3 mg/dL (1.6-2.4)
[2024-06-19 03:57] LABS: Albumin, Blood 2.4 g/dL (3.4-5.0); Albumin/Globulin Ratio 0.8 (0.8-1.8); Bilirubin, Total 28.2 mg/dL (0.1-1.0); Bun/Creatinine Ratio 27.8 (12.0-20.0); Calcium, Blood 7.7 mg/dL (8.5-10.1); Creatinine, Blood 0.58 mg/dL (0.60-1.20); Globulin, Blood 2.9 g/dL (2.2-4.0); Potassium, Blood 4.3 mmol/L (3.5-5.5); Total Protein, Blood 5.3 g/dL (6.4-8.2)
--- NOTE | 2024-06-19 05:17 | NUR ---
End of shift summary No acute events overnight. Pt cooperative w/ care and responds to questions appropriately- aox3. Pt confused on date. Pt on room air, maintains saturations> 92%, lungs clear t/o. Pt on continuous gambling monitor, nsr rate of 80s. Bp stable w/ systolics in the 100-110s. Pt has good urine output via condom cath. No bm during this shift. Pt skin remains jaundiced and unchanged from start of shift. Repositioned q2 hours- pt participated in turns. Tolerating po fluid intake well. Call light remains w/ in reach. Plan of care ongoing.
--- NOTE | 2024-06-19 08:37 | NUR ---
AM NOTE.... ASSUMED CARE OF PT AT 0700, PT IS A&O x3, HE IS MORE AWAKE/ALERT THAN YESTERDAY. PT IS IN SR IN THE 90'S-100'S BP IS SOFT BUT STABLE WITH MAPS>65. PT IS ON RA WITH O2 SATS>95% L/S CLEAR T/O DIM IN THE BASES, BREATHS ARE SHALLOW. BT PRESENT AND HYPERACTIVE, ABD HAS MODERATE DISTENTION, IS FIRM TO PALPATION. PT'S SKIN IS JAUNDICED. PT IS 2P W/FWW TO THE BSC TO ATTEMPT A BM. CALL LIGHT IN REACH WILL CONTINUE TO MONITOR.
[2024-06-19] MEDS ORDERED: Magnesium Hydroxide Conc 10 ML UDC PO PRN (09:50)
[2024-06-19] MEDS ORDERED: Bisacodyl 10 MG Supp PR PRN (09:50)
--- NOTE | 2024-06-19 17:32 | NUR ---
SHIFT SUMMARY.... NO ACUTE NEGATIVE CHANGES NOTED THIS SHIFT. PT'S VS STABLE BP STILL SOFT BUT MAPS>65. PT WAS UP TO THE BSC TO HAVE MULTIPLE BMs AND VOID. THE PT HAS BEEN CONT OF BOWEL AND BLADDER THIS SHIFT. CONDOM CATH WAS REMOVED. PT WORKED WITH PT/OT AND WALKED AROUND THE UNIT TWICE THIS SHIFT. CALL LIGHT IN REACH WILL CONTINUE TO MONITOR UNTIL REPORT IS GIVEN TO ONCOMING RN.
[2024-06-19] MEDS ORDERED: Docusate Sodium 100 MG Cap PO SCH (21:00)
[2024-06-19] MEDS ORDERED: Sennosides 8.6 MG Tab PO SCH (21:00)
[2024-06-20] VITALS (9 sets, daily range): BP systolic 90–117; BP diastolic 58–82
--- NOTE | 2024-06-20 00:22 | NUR ---
ASSUMPTION OF CARE PT LYING BED. ALERT AND ORIENTED. HR AND BP STABLE. SINUS RHYTHM. ABDOMEN DISTENDED BUT NON TENDER. PT INCONTINENT OF URINE. SALINE LOCKED. PT CAN SWALLOW PILLS, BIG ONES IN APPLE SAUCE. DECREASED APPETITE, SUPPLEMENTED WITH ENSURE. PT HAS CALL LIGHT HANDY. PT PASSED OF TO [facility] FOR RECEIPT OF NEW PATIENT.
[2024-06-20 03:24] LABS: Hematocrit 32.5 % (37.0-53.0); Hemoglobin 11.9 g/dL (13.5-17.5); Mean Corpuscular HGB 34.2 pg (26.0-34.0); Mean Corpuscular HGB Conc 36.6 g/dL (31.5-36.5); Mean Corpuscular Volume 93 fL (80-100); Mean Platelet Volume 12.2 fL (9.1-12.4); Platelet Count 238 K/mm3 (150-400); RDW Coefficient Variation 19.2 % (11.7-14.2); RDW Standard Deviation 64.4 fL (35.1-46.3); Red Blood Cell Count 3.48 M/mm3 (4.30-5.90)
[2024-06-20 03:29] LABS: NRBC ABSOLUTE 0.02 K/mm3 (0.00-0.02); NRBC Auto 0.1 /100 WBC (0.0-0.2); White Blood Cell Count 21.05 K/mm3 (4.00-11.30)
[2024-06-20 03:49] LABS: BAND PERCENT MAN 3 % (0-8); BASOPHILS PERCENT MAN 0 % (0-2); EOSINOPHILS ABSOLUTE MAN 0.21 K/mm3 (0.00-0.68); EOSINOPHILS PERCENT MAN 1 % (0-6); LYMPHOCYTES % ATYPICAL MANUAL 1 % (0-0); LYMPHOCYTES ABSOLUTE MAN 1.47 K/mm3 (0.84-5.20); LYMPHOCYTES PERCENT MAN 6 % (21-46); METAMYELOCYTE ABSOLUTE MAN 0.21 K/mm3 (0.00-0.00); METAMYELOCYTE PERCENT MAN 1 % (0-0); MONOCYTES ABSOLUTE MAN 1.47 K/mm3 (0.16-1.47); MONOCYTES PERCENT MAN 7 % (4-13); Magnesium, Blood 2.3 mg/dL (1.6-2.4); NEUTROPHILS ABSOLUTE MAN 17.68 K/mm3 (1.96-9.15); SEG NEUTROPHILS PERCENT MAN 81 % (41-73); TOTAL CELLS COUNTED 100
[2024-06-20 03:50] LABS: Albumin, Blood 2.3 g/dL (3.4-5.0); Albumin/Globulin Ratio 0.8 (0.8-1.8); Bilirubin, Total 28.8 mg/dL (0.1-1.0); Calcium, Blood 7.9 mg/dL (8.5-10.1); Creatinine, Blood 0.56 mg/dL (0.60-1.20); Globulin, Blood 2.8 g/dL (2.2-4.0); Phosphorus, Blood 3.6 mg/dL (2.5-4.9); Potassium, Blood 4.2 mmol/L (3.5-5.5); Total Protein, Blood 5.1 g/dL (6.4-8.2)
--- NOTE | 2024-06-20 05:20 | NUR ---
SHIFT SUMMERY ASSUMED CARE OF PT APPX 0030. PT ALERT AND ORIENTED X4 W/GEN WEAKNESS. VS WNL. AFEBRILE. NO COMPLAINTS OF PAIN AND NO ACUTE DISTRESS THIS SHIFT. PT HAS HAD NO ACUTE CHANGES TO PLAN OF CARE OVERNIGHT.
[2024-06-20] MEDS ORDERED: Albumin (Human) 25gm/100ml 100 ML IV ONE (15:30)
--- NOTE | 2024-06-20 18:27 | NUR ---
SHIFT SUMMARY PT A/O X3, OCCASIONAL CONFUSION BUT REORIENTS EASILY. MEDICAL STATUS, NO TELE ORDERED. HR REGULAR, BP WNL. 02 SAT >94 % ON ROOM AIR. LUNGS CTA, DIM BASES. SOB IMPROVED AFTER PARACENTESIS TODAY. VERY POOR APPETITE, EATING ONLY BITES OF MEALS OR REFUSING COMPLETELY. HYPERACTIVE BOWEL SOUNDS, DENIES NAUSEA, BM X1 TODAY. INCONTINENT VOIDS, CONDOM CATH ATTEMPTED X3 WITHOUT SUCCESS, MALE PUREWICK PLACED. SKIN JAUNDICED, NO BREAKDOWN RELATED TO PRESSURE OBSERVED. PT OOB X2 TO CHAIR, OOB TO COMMODE AND WALKED WITH PT RESULTING IN SEVERE EXHAUSTION AND INCREASED WEAKNESS. MOTIVATED TO INCREASE ACTIVITY ABLE. PIV SL. AND FRIENDS TO BEDSIDE TO VISIT. POC ONGOING.
[2024-06-21 03:52] LABS: International Normalized Ratio 1.44
[2024-06-21 04:08] LABS: Albumin, Blood 2.3 g/dL (3.4-5.0); Albumin/Globulin Ratio 0.9 (0.8-1.8); Bilirubin, Total 28.7 mg/dL (0.1-1.0); Calcium, Blood 7.9 mg/dL (8.5-10.1); Creatinine, Blood 0.71 mg/dL (0.60-1.20); Globulin, Blood 2.6 g/dL (2.2-4.0); Total Protein, Blood 4.9 g/dL (6.4-8.2)
[2024-06-21 05:19] VITALS: BP 89/67
[2024-06-21 07:37] VITALS: BP 98/67
[2024-06-21 11:47] VITALS: BP 105/75
--- NOTE | 2024-06-21 11:57 | NUR ---
REASSESSMENT PT HAS CONTINUED TO BE ALERT AND ORIENTED, ALTHOUGH A LITTLE DELAYED IN HIS THOUGHT PROCESSING AND SPEECH. HE IS UNSURE IF HE WAS HALLUCINATING LAST NIGHT OR JUST HAVING A VIVID DREAM, BUT HE THOUGHT HE GOT UP AND WALKED INTO THE WRONG ROOM. BED ALARM HAS BEEN ON. PT'S STATES THAT HE HAS VERY VIVID DREAMS AT HOME. PT GOT UP TO THE CHAIR FOR ABOUT AN HOUR THIS MORNING, THEN WENT BACK TO BED. HE COMPLAINED OF A LITTLE DIZZINESS WHILE IN THE CHAIR, BUT NONE SINCE. HE HAS BEEN UP TO THE COMMODE TWICE ATTEMPTING A BOWEL MOVEMENT, BUT ONLY GAS. LUNGS REMAIN CLEAR, RA, HRR. POOR APPETITE, BUT PT'S ASSISTS WITH MEALS AND ENCOURAGES INTAKE. MALE PUREWICK ON AND DRAINING DARK, ALONDRA URINE.
--- NOTE | 2024-06-21 15:32 | NUR ---
TRANSFER PT TRANSFERRED TO 363 VIA WC WITH RN. REPORT GIVEN TO SHERRI MERCADO. PT'S WITH PT AT TIME OF TRANSFER. ALL BELONGINGS MOVED WITH PT TO NEW ROOM. PT TOLERATED TRANSFER WELL.
[2024-06-21 15:47] VITALS: BP 100/73
--- NOTE | 2024-06-21 16:54 | NUR ---
SHIFT SUMMARY 1525 PT TX'D TO RM 363 FROM ICU 5. RECEIVED REPORT FROM BREAK SHERRI MERCADO. PT IS A 1P ASSIST USING FWW. SKIN IS JAUNDICED, ABD SLIGHT DISTENDED. MALE PUREWICK IN PLACE DRAINING ALONDRA COLOR URINE. PT AWAKE AND WATCHING TV WITH AFTER ARRIVAL TO . PT AND NOW BOTH SLEEPING IN . NO S/SX OF DISTRESS NOTED OR REPORTED. CALL LT IN REACH.
[2024-06-21 19:42] VITALS: BP 105/76
[2024-06-22 04:29] VITALS: BP 99/67
--- NOTE | 2024-06-22 06:34 | NUR ---
Shift Summary Pt was lethargic and somnolent t/o the shift. During assessment he was unsure of what day/month it was and guessed it was feburaury. I called the hospitalist who ordered a blood ammonia, ammonia was 24; WNL. Pt's urine is a very dark tea colored urine, almost brown/coffee colored. He states no pain/nausea or discomfort. He slept t/o the shift, only waking up for pt care. He is very weak, requiring 2 person assist to BSC where he has a difficult time pivoting. He has a hard time feeding himself and drinking water because his arms are so weak. Plan is for him do D/C to SNF today.
[2024-06-22 07:34] VITALS: BP 93/61
[2024-06-22 09:40] LABS: SARS-Cov-2 (COVID-19) PCR, MMC NEGATIVE (NEGATIVE)
[2024-06-22] MEDS ORDERED: Benzonatate 100 MG Cap PO PRN (11:45)
--- NOTE | 2024-06-22 12:57 | NUR ---
Met with pt and his Constance at the request of the hospitalist. Pt's states the patient is "pretty confused" today, and he did not appear able to participate in our conversation. He continued to close his eyes frequently throughout our meeting, snoring softly. Constance states the patient is a , and has received care through them in the past in some capacity. We discussed hospice services and what they provide. At this time, his wants to try caring for him at home with hospice, and if it becomes too challenging, she would be open to [facility]. Spoke with Karla, PC nurse at [facility]. She recommends [facility] of [facility], in case things don't work out at home. Will pass the information to pt's .
[2024-06-22 14:29] VITALS: BP 99/68
[2024-06-22] MEDS ORDERED: Lactulose 20 GM/30 ML UDC PO SCH (17:00)
--- NOTE | 2024-06-22 18:18 | NUR ---
SHIFT SUMMARY PT DENIED CONFUSION AND WAS A&OX4 T/O SHIFT. PT DID ADMIT TO AN EPISODE OF CONFUSION LAST NIGHT. AWARE AND LACTULOSE ORDERED AND GIVEN. PT HAD A LOW BP, BUT WAS ASYMPTOMATIC. PLAN FOR POSSIBLE PLEURX DRAIN PLACEMENT AND HOME ON HOSPICE. NO OTHER ACUTE CHANGES. CALL LIGHT WITHIN REACH, AT BEDSIDE ASSISTING W/ CARE, AND BED ALARM ON.
[2024-06-22 20:49] VITALS: BP 95/69
[2024-06-23 03:41] VITALS: BP 97/70
[2024-06-23 04:34] LABS: BASOPHILS ABSOLUTE AUTO 0.05 K/mm3 (0.00-0.23); BASOPHILS PERCENT AUTO 0 % (0-2); EOSINOPHILS ABSOLUTE AUTO 0.29 K/mm3 (0.00-0.68); EOSINOPHILS PERCENT AUTO 2 % (0-6); Hematocrit 32.6 % (37.0-53.0); Hemoglobin 11.7 g/dL (13.5-17.5); IMMATURE GRAN PERCENT AUTO 4 % (0-1); LYMPHOCYTES ABSOLUTE AUTO 1.39 K/mm3 (0.84-5.20); LYMPHOCYTES PERCENT AUTO 7 % (21-46); MONOCYTES PERCENT AUTO 11 % (4-13); Mean Corpuscular HGB 33.2 pg (26.0-34.0); Mean Corpuscular HGB Conc 35.9 g/dL (31.5-36.5); Mean Corpuscular Volume 93 fL (80-100); Mean Platelet Volume 10.9 fL (9.1-12.4); NEUTROPHILS ABSOLUTE AUTO 15.18 K/mm3 (1.96-9.15); NEUTROPHILS PERCENT AUTO 77 % (41-73); Platelet Count 233 K/mm3 (150-400); RDW Coefficient Variation 19.2 % (11.7-14.2); RDW Standard Deviation 64.4 fL (35.1-46.3); Red Blood Cell Count 3.52 M/mm3 (4.30-5.90); White Blood Cell Count 19.71 K/mm3 (4.00-11.30)
[2024-06-23 04:45] LABS: International Normalized Ratio 1.5; Prothrombin Time Results 15.6 Sec (9.7-11.5)
[2024-06-23 05:30] LABS: Albumin, Blood 2.1 g/dL (3.4-5.0); Albumin/Globulin Ratio 0.7 (0.8-1.8); Bilirubin, Total 30.7 mg/dL (0.1-1.0); Bun/Creatinine Ratio 25.1 (12.0-20.0); Calcium, Blood 7.7 mg/dL (8.5-10.1); Creatinine, Blood 0.88 mg/dL (0.60-1.20); Globulin, Blood 2.9 g/dL (2.2-4.0); Potassium, Blood 3.8 mmol/L (3.5-5.5)
--- NOTE | 2024-06-23 06:28 | NUR ---
SHIFT SUMMARY PATIENT TOOK HS MEDICATION. WAS POLITE AND RECEPTIVE TO CARE PATIENT ASSTISTED TO BEDSIDE COMODE. BED CHANGED WELL CHANGE OF PULL UPS. PATIENT TURNED AND ADJUSTED IN BED. BED ON LOW POSITON, RAILS TIMES 2, CALL LIGHT WITHIN REACH
[2024-06-23 08:03] VITALS: BP 91/66
[2024-06-23 14:37] VITALS: BP 91/65
--- NOTE | 2024-06-23 17:28 | NUR ---
Pt's stopped in today, states she doesn't feel comfortable taking the patient home. She states she wants to remain "", not caregiver. Discussed with CM, and Mamta [facility] ref[facility] to [facility] the [facility]. Family is awaiting a bed at one of the facilities.
--- NOTE | 2024-06-23 17:56 | NUR ---
SHIFT SUMMARY PT HAD INTERMITTENT CONFUSION, BUT WAS ABLE TO ANSWER QUESTIONS APPROPRIATELY. PT CONT TO HAVE LOW BP, BUT ASYMPTOMATIC. WAS CONSULTED AND PT IS TO BE NPO AFTER MIDNIGHT TO HAVE PLEURX DRAIN PLACED. NO OTHER ACUTE CHANGES THIS SHIFT. CALL LIGHT WITHIN REACH, AT BEDSIDE WHO ASSISTS W/ CARE, AND BED ALARM ON.
[2024-06-23 20:10] VITALS: BP 92/59
[2024-06-24] VITALS (24 sets, daily range): BP systolic 88–106; BP diastolic 60–76
--- NOTE | 2024-06-24 05:31 | NUR ---
SHIFT SUMMARY PATIENT DID NOT WANT TO TAKE COLACE OR LACTULOS. PATIENT USED BED JOSUE ONCE AND THEN INSISTED THERE AFTER BEING ASSISTED TO BEDSIDE COMODE, BED JOSUE WAS UNCOMFORTABLE TO HIM. AT APPROXIMATELY 0158 NURSE HEARD MOANING FROM OUTSIDE ROOM. UPON ENTERING PATIENT WAS FOUND LAYING ON THE FLOOR WITH PILLOW UNDER HEAD AND BLANKETS ON TOP OF HIM. PATIENT STATED HE HAD FALLEN OUT OF BED WHILE TRYING TO ADJUST HIS BLANKETS. PATIENT DENIED HITTING HIS HEAD AND STATED HIS ONLY PAIN WAS ON HIS RIGHT HIP. PATIENT WAS ASSISTED BY STAFF BACK TO BED. A HEAD TO TOE ASSESSMENT WAS COMPLETED. NO BRUSING, SCRAPES OR CUTS TO SKIN WERE FOUND. A NEW BRIEF WAS PUT ON AND HE WAS CLEANED UP. HE ASKED ABOUT ONE OF HIS RINGS AND HIS TABLET. BOTH WERE GIVEN TO HIM. HE PUT RING ON FINGER AND TABLET WAS ON BEDSIDE TABLE. BED ALARM SET AND CALL LIGHT PLACE LEFT SIDE OF BED DIRECTLY NEXT TO HIS HAND. A THIRD RAIL WAS ADJUSTED FOR PATIENT SAFETY. POST FALL INTROVENTION ADDED TO CHART AND PARLIAMENTARY COUNSEL NOTIFIED. BED IN LOW POSITION, RAILS TIMES 2, AND CALL LIGHT WITH IN REACH.
--- NOTE | 2024-06-24 12:10 | NUR ---
Code status updated to DNR, pt's filled out new POLST. Awaiting physician signature.
[2024-06-24] MEDS ORDERED: Bupivacaine 0.5% HCl 5 MG/ML 30MLVIAL ONE (13:19)
[2024-06-24] MEDS ORDERED: Lactated Ringer's 1,000 ML IV SCH (13:25)
[2024-06-24] MEDS ORDERED: CeFAZolin Sodium 2,000 MG in NS 100 ML IV SCH (13:25)
--- NOTE | 2024-06-24 13:39 | NUR ---
inTO Day Surgery VIA [facility] W/ FOR PLEUREX CATH. PT ALERT AND ORIENTED BUT WEAK. PT'S EYES AND SKIN ARE YELLOW. Patient confirms NPO status and agrees with scheduled surgery. Pre-Op teaching done. Pt verbalizes understanding. History, Chart, Medications and Allergies reviewed before start of procedure.
[2024-06-24] MEDS ORDERED: Phenylephrine HCl 100 MCG/ML-NS 10MLSYR (1MG/10ML) ONE (14:20)
[2024-06-24] MEDS ORDERED: Lidocaine HCL 1% 10 ML MDV ONE (14:24)
--- NOTE | 2024-06-24 16:24 | NUR ---
PT ARRIVED TO THE FLOOR AT APPROX 1610 FROM DAY SURGERY. PT TRANSFERRED FROM [facility] TO BED BY SLIDE SHEET ASSIST. PT A&OX4 AND DRAIN SITE C/D/I. PT HYPOTENSIVE, BUT ASYMPTOMATIC AND DENIED PAIN. CALL LIGHT PLACED WITHIN REACH AND BED ALARM ON.
--- NOTE | 2024-06-24 17:44 | NUR ---
SHIFT SUMMARY PT HAD PLEURX DRAIN PLACED TODAY AND DRESSING REMAINS C/D/I. PT DID NOT C/O PAIN AND OR DISCOMFORT. COUGH MEDICATED PER EMAR. NO OTHER ACUTE CHANGES THIS SHIFT. CALL LIGHT WITHIN REACH AND BED ALARM ON.
[2024-06-25 03:39] VITALS: BP 93/66
--- NOTE | 2024-06-25 04:14 | NUR ---
SHIFT SUMMARY PATIENT HAD LOW GRADE FEVER 99.2 DOWN FROM 100.0. AXO X3 WITH CONFUSION AT TIMES AND SLOW TO RESPOND. BEDREST. SPOUSE STAYED OVERNIGHT AND REPORTED ONE OUT OF BED ATTEMPT. DENIES CHEST PAIN, SOB, AND N/V. PIVS INTACT. PLEURX DRAIN INTACT. BOWEL MEDS AND LACTULOSE REFUSED WITH MULTIPLE LOOSE STOOLS. CALL LIGHT IN REACH. BED IN LOWEST POSITION. WILL CONTINUE TO MONITOR UNTIL DAY SHIFT NURSE ASSUMES CARE.
[2024-06-25 07:52] VITALS: BP 93/69
[2024-06-25] MEDS ORDERED: HYDROmorphone HCl 2 MG Tab PO PRN (11:55)
[2024-06-25 12:06] VITALS: BP 86/57
--- NOTE | 2024-06-25 18:20 | NUR ---
PT A/O X3 BUT IS VERY SLOW TO RESPOND. AT BEDSIDE TO ASSIST WITH PT CARE. PT VERY JANDICE AND SEEMS UNCOMFORTABLE BUT STATES HE HAS NO PAIN AT THE MOMENT. ASSISTED WITH TURNING AND WAS ABLE TO EXPRESS NEED TO URINATE. URINE IS A DARK ORANGE COLOR. DR SMITH INTO SEE PT AND DISCCUSED THE POSSIBILITY OF STOPPING PT LACTALOSE IF HE WAS NOT STEPHANI IT, AND THE POSSIBILITY THAT THE PT WOULD BECOME MORE SOLMULANT. OK TO PLAY IT BY EAR AT THE MOMENT. PT BEGAN TO HAVE ABD PAIN / DISCOMFORT AT PLEURLX SITE AND WAS ORDERED PAIN MEDICATION. SITE IS CLEAN AND INTACT WITH SOME LEAKING AROUND INSERTION SITE.
[2024-06-25 20:11] VITALS: BP 90/59
[2024-06-26 02:25] VITALS: BP 85/59
--- NOTE | 2024-06-26 04:29 | NUR ---
SHIFT SUMMARY PATIENT HAD NO ACUTE CHANGES. SOMNOLENT AT SHIFT CHANGE. SPOUSE PRESENT T/O SHIFT AND STAYS OVERNIGHT. NO S/SX OF PAIN, SOB, OR N/V. SOFT BP'S. PLEURX DRAIN IN PLACE. LACTULOSE AND BOWEL MEDS REFUSED BY SPOUSE. SLEPT MOST OF THE SHIFT. CALL LIGHT IN REACH. BED IN LOWEST POSITION AND ALARM ACTIVATED. WILL CONTINUE TO MONITOR UNTIL DAY SHIFT NURSE ASSUMES CARE.
[2024-06-26 08:12] VITALS: BP 83/59
--- NOTE | 2024-06-26 14:39 | NUR ---
REPORT RECEIVED VERIFIED PT HAS HAD A LITTLE MORE ACTIVE DAY TODAY, MORE TALKATIVE AND ENGAGING, PT HAS C/O PAIN TO RIGHT ABD BUT HAS DECIDED TO WAIT UNTIL FRIENDS ARRIVE SO HE CAN BE MORE ALERT. PALATIVE CARE NURSE WAS NOTIFIED ABOUT THE PAIN IN ORDER TO ASSCESS THE PLEURX DRAIN. BED BATH DONE, FRIENDS AT BEDSIDE AND RESTING AT HOME FOR A COUPLE OF HOURS.
[2024-06-26 20:21] VITALS: BP 89/59
--- NOTE | 2024-06-27 04:21 | NUR ---
SHIFT SUMMARY PATIENT HAD FAMILY/FRIENDS IN ROOM AT SHIFT CHANGE. AXOX 3 AND BEDREST WITH PLEURX DRAIN IN PLACE. SPOUSE REFUSED LACTULOSE AND BOWEL MEDICATION. NO S/SX OF CHEST PAIN, SOB, OR N/V. ABLE TO SLEEP AFER VISITORS LEFT. SPOUSE STAYS IN ROOM T/O SHIFT. CALL LIGHT IN REACH. BED IN LOWEST POSITION. WILL CONTINUE TO MONITOR UNTIL DAY SHIFT NURSE ASSUMES CARE.
[2024-06-27 04:52] VITALS: BP 88/59
[2024-06-27 07:49] VITALS: BP 89/62
[2024-06-27 15:02] VITALS: BP 85/58
--- NOTE | 2024-06-27 18:16 | NUR ---
NO CHANGE IN PT CONDITION, HAS BEEN VERY HELPFUL WITH PT CARE AND HAS BEEN AT PT SIDE. TODAY PT WAS A LITTLE MORE CONFUSED SO IT WAS DECIDED TO GIVE LACTOLOSE AND SOME PAIN MEDICATION SINCE PT HAVING A HARD TIME EXPRESSING NEEDS. PT ALSO VERY YELLOW AND ABD DRAIN SEEMED TO BE LEAKING. DRESSING AND PARACENTISIS WERE DONE PER PROTOCOL IN WHICH PT STEPHANI VERY WELL. 1100 MLS OF SEROUS FLUID WAS REMOVED. PT SEEMED MORE CALM THE REST OF THE SHIFT AND WAS ABLE TO BE SURROUNDED BY FRIENDS AND FAMILY, WILL CALL IF NEEDING ANY ASSISTENCE
[2024-06-27 19:49] VITALS: BP 65/35
[2024-06-27 21:45] VITALS: BP 74/40
[2024-06-28 02:57] VITALS: BP 85/52
--- NOTE | 2024-06-28 05:15 | NUR ---
THREAD CLIPPER NOTE PATIENT IS A&O TO SELF, VERY LETHARGIC DROWSY, AND HAS SOME CONFUSION, LOW BP MD NOTIFIED, NO NEW ORDERS WERE MADE. IS AT BEDSIDE. PATIENT IS ON ROOM AIR, NO TELE. EVENING MEDS WERE HELD DUE TO DROWSYNESS AND RISK OF ASPIRATION. PATIENT IS INCONTINENT BUT IS ABLE TO USE URINAL AT TIMES WITH INSTRUCTIONS PATIENT IS CURRENTLY ON BED REST, TURN AND REPOSITION. HERE FOR LIVER CIRRHOSIS, SKIN IS JAUNDICE THROUGHOUT. PLAN TO D/C TODAY TO [facility]
[2024-06-28 07:12] VITALS: BP 67/46
[2024-06-28 10:32] LABS: SARS-Cov-2 (COVID-19) PCR, MMC NEGATIVE (NEGATIVE)
[2024-06-28 11:18] VITALS: BP 90/62
[2024-06-28] MEDS ORDERED: LACT10SY PO (12:20)
[2024-06-28] MEDS ORDERED: BENZ100A PO (12:20)
--- NOTE | 2024-06-28 16:26 | NUR ---
PATIENT DISCHARED TO [facility] VIA EMS TRANSPORT. PATIENT WILL BE ON HOSPICE WITH [facility]. REPORT PRIOR TO [facility] LEAVING TO FACILITY.
== END 2024-06-28 16:45 | DRG 432 ==
LOC: ER 12:29 → MEDS 15:21 → ICUE 15:21 → PCU 15:21 → ICUE 06-17 16:42 → MEDS 06-21 15:25 → ENPENDDIS 06-28 11:37 → MEDS 06-28 16:45
PROVIDERS: Emergency Medicine; Family Medicine; Internal Medicine; Physician Assistant; ADMIT Internal Medicine
PROC: 0W9G3ZX Drainage of Peritoneal Cavity, Percutaneous Approach, Diagnostic (ICD-10-PCS; principal; 2024-06-14)
PROC: 0W9G3ZZ Drainage of Peritoneal Cavity, Percutaneous Approach (ICD-10-PCS; 2024-06-14)
PROC: 30233J1 Transfusion of Nonautologous Serum Albumin into Peripheral Vein, Percutaneous Approach (ICD-10-PCS; 2024-06-14)
PROC: HZ2ZZZZ Detoxification Services for Substance Abuse Treatment (ICD-10-PCS; 2024-06-14)
PROC: 0W9G3ZX Drainage of Peritoneal Cavity, Percutaneous Approach, Diagnostic (ICD-10-PCS; 2024-06-14)
PROC: 0W9G3ZX Drainage of Peritoneal Cavity, Percutaneous Approach, Diagnostic (ICD-10-PCS; 2024-06-20)
DX: K70.31 Alcoholic cirrhosis of liver with ascites (principal); I81 Portal vein thrombosis; F10.239 Alcohol dependence with withdrawal, unspecified; E87.1 Hypo-osmolality and hyponatremia; N39.0 Urinary tract infection, site not specified; Z66 Do not resuscitate; Z51.5 Encounter for palliative care; K72.10 Chronic hepatic failure without coma; K76.82 Hepatic encephalopathy; E87.6 Hypokalemia; K80.20 Calculus of gallbladder without cholecystitis without obstruction; D69.59 Other secondary thrombocytopenia; M62.50 Muscle wasting and atrophy, not elsewhere classified, unspecified site; G62.9 Polyneuropathy, unspecified; K21.9 Gastro-esophageal reflux disease without esophagitis; I10 Essential (primary) hypertension; Z98.52 Vasectomy status; Z98.890 Other specified postprocedural states; Z79.899 Other long term (current) drug therapy; Z79.82 Long term (current) use of aspirin; Z71.41 Alcohol abuse counseling and surveillance of alcoholic
CPT/HCPCS: 0241U; 36415; 49083; 71046; 76705; 80053; 80074; 81001; 82042; 82140; 82607; 82746; 82947; 83615; 83690; 83735; 84100; 84157; 85025; 85027; 85610; 87040; 87086; 88108; 88305; 89051; 93005; 93010; 94760; 97110; 97116; 97162; 97530; 99285-25; A9270; C1729; J0690; J0696; J2001; J2060; J2371; J2405; J2470; J3411; J7050; J7120; J7512; P9047; U0002